=== PATIENT | female | born 1950 | race Caucasian/White ===

== ENCOUNTER 2020-10-08 14:46 | Emergency (ER) | payer MEDICARE ==
[~2020-10-08] VITALS: Ht 154.9 cm; Wt 77.3 kg
[2020-10-08] MEDS ORDERED: PRAV40TA3 PO (15:26)
[2020-10-08] MEDS ORDERED: ASPI81TA87 PO (15:26)
[2020-10-08] MEDS ORDERED: MULT-1203 PO (15:26)
[2020-10-08] MEDS ORDERED: LISI-894 PO (15:26)
[2020-10-08] MEDS ORDERED: AMIT75 GT (15:26)
[2020-10-08] MEDS ORDERED: DIVA-80 PO (15:26)
[2020-10-08] MEDS ORDERED: CALC-789 PO (15:26)
[2020-10-08] MEDS ORDERED: FISH1CAP27 PO (15:26)
[2020-10-08] MEDS ORDERED: GABA-583 PO (15:26)
[2020-10-08] MEDS ORDERED: HYD25 PO (15:26)
[2020-10-08 16:22] VITALS: BP 159/89
[2020-10-08] MEDS ORDERED: IBUPROFEN 600 MG TABLET PO ONE (16:30)
== END 2020-10-08 16:41 | disposition home or self-care (01) ==
LOC: EMS 14:46
DX: S16.1XXA Strain of muscle, fascia and tendon at neck level, initial encounter (principal); W19.XXXA Unspecified fall, initial encounter; Y93.73 Activity, racquet and hand sports; Y92.89 Other specified places as the place of occurrence of the external cause; Y99.8 Other external cause status
CPT/HCPCS: 99283